=== PATIENT | female | born 1945 | race Caucasian/White ===

== ENCOUNTER 2017-07-27 15:40 | Observation (INO) | payer MEDICARE, BC ==
[~2017-07-27] VITALS: Ht 154.9 cm; Wt 107.0 kg
[2017-07-27 16:47] LABS: HEMATOCRIT 22.8 % (35.0-45.0); MEAN CORPUSCULAR HEMOGLOBIN 14.4 PG (27.0-31.0); MEAN CORPUSCULAR HGB CONC 27.6 % (33.0-36.5); MEAN CORPUSCULAR VOLUME 52.2 FL (78-98); MEAN PLATELET VOLUME 8.2 FL (7.4-10.4); PLATELET COUNT 404 X10'3 (140-440); RED BLOOD COUNT 4.36 X10'6 (4.20-5.60); RED CELL DISTRIBUTION WIDTH 23.1 % (11.5-14.5); WHITE BLOOD COUNT 8.2 X10'3 (4.5-11.0)
[2017-07-27 16:53] LABS: HEMOGLOBIN 6.3 g/dl (12.0-16.0)
[2017-07-27 16:56] LABS: PROTHROMBIN TIME 10.3 SECONDS (9.0-12.0)
[2017-07-27 17:00] LABS: ANISOCYTOSIS 3+; BASOPHILS % (MANUAL) 5 % (0-1); ELLIPTOCYTES 1+; EOSINOPHILS % (MANUAL) 1 % (0-6); HYPOCHROMASIA 2+; LYMPHOCYTES % (MANUAL) 49 % (21-51); MICROCYTOSIS 3+; MONOCYTES % (MANUAL) 6 % (2-12); NEUTROPHILS % (MANUAL) 69 % (42-75); PLATELET ESTIMATE NORMAL; POLYCHROMASIA 1+; TOTAL CELLS COUNTED 100
[2017-07-27 17:01] LABS: ALANINE AMINOTRANSFERASE 21 U/L (12-78); ALBUMIN 3.5 G/DL (3.4-5.0); ALKALINE PHOSPHATASE 63 IU/L (46-116); ANION GAP 9 (8-16); ASPARTATE AMINO TRANSFERASE 14 U/L (10-37); BILIRUBIN,TOTAL 0.5 MG/DL (0.1-1.0); BLOOD UREA NITROGEN 18 MG/DL (7-18); BUN/CREATININE RATIO 18.6 (6.6-38.0); CALCIUM 9.1 MG/DL (8.5-10.1); CHLORIDE 109 MMOL/L (99-107); CREATININE 0.97 MG/DL (0.40-0.90); GLUCOSE 142 MG/DL (70-104); POTASSIUM 3.8 MMOL/L (3.5-5.1); SODIUM 147 MMOL/L (135-145); TOTAL CARBON DIOXIDE 28.8 MMOL/L (24-32); TOTAL PROTEIN 7.1 G/DL (6.4-8.2); eGFR 57 ML/MIN
[2017-07-27] MEDS ORDERED: normal saline 1000ml 1,000 ML IV ONE (17:16)
[2017-07-27] MEDS ORDERED: pantoprazole 40 MG vial IV STA (17:16)
[2017-07-27] MEDS ORDERED: magnesium hydroxide 30ml (MOM) UD suspension PO PRN (18:55)
[2017-07-27] MEDS ORDERED: potassium Cl 20 mEq SR tablet PO PRN ×2 (18:55)
[2017-07-27] MEDS ORDERED: potassium Cl 40MEQ/NS 500ml 500 ML IV PRN ×2 (18:55)
[2017-07-27] MEDS ORDERED: mag hydrox/Alum hydrox/simeth 30ml oral suspension PO PRN (18:55)
[2017-07-27] MEDS ORDERED: sodium ferric gluc complex inj 125 MG in normal saline 100ml IV soln 100 ML IV ONE (18:55)
[2017-07-27] MEDS ORDERED: magnesium 2GM in 50ml NS 50 ML IV PRN (18:55)
[2017-07-27] MEDS ORDERED: magnesium 4gm in 100ml NS 100 ML IV PRN (18:55)
[2017-07-27] MEDS ORDERED: metoclopramide 5 mg/ml inj IV PRN (18:55)
[2017-07-27] MEDS ORDERED: ondansetron/PF 4mg/2ml inj IV PRN (18:55)
[2017-07-27] MEDS: K and/or MAG REPLACEMENT MC SCH (18:55)
[2017-07-27] MEDS ORDERED: acetaminophen 325mg tablet PO PRN ×2 (18:55)
[2017-07-27] MEDS ORDERED: magnesium Cl slow-release 64mg tablet PO PRN (18:55)
[2017-07-27] MEDS ORDERED: HYDROcodone/acetaminophen 10/325mg tab PO PRN (18:55)
[2017-07-27] MEDS ORDERED: HYDROcodone/acetaminophen 5mg/325mg tablet PO PRN (18:55)
[2017-07-27] MEDS ORDERED: METFORMIN HCL 500 MG TABLET (19:00)
[2017-07-27] MEDS ORDERED: OMEP20TA5 PO (19:31)
[2017-07-27] MEDS ORDERED: ASPI-205 PO (19:31)
[2017-07-27 19:42] LABS: PHOSPHORUS 4.2 MG/DL (2.3-4.5)
[2017-07-27] MEDS: furosemide 40mg/4ml inj IV SCH (20:24)
[2017-07-27 20:53] LABS: ABSOLUTE RETICS # 104900 /CUMM (23000-93000); RETICULOCYTE % (AUTO) 2.4 % (0.5-1.5)
[2017-07-27 20:53] LABS: CLARITY,URINE Clear (Clear); COLOR,URINE Yellow (Yellow); GLUCOSE, URINE Negative (Neg); KETONES,URINE Negative (Neg); LEUKOCYTE ESTERASE ,URINE Negative (Neg); NITRITES, URINE Negative (Neg); OCCULT BLOOD,URINE Negative (Neg); PH,URINE 5.5 (4.8-8.0); PROTEIN,URINE Negative (Neg)
[2017-07-27] MEDS ORDERED: temazepam 15mg capsule PO PRN (21:00)
[2017-07-27 21:08] LABS: UA COLLECTION TYPE CLN CATCH MIDSTREAM
[2017-07-27 22:30] VITALS: BP 143/90
[2017-07-27] MEDS ORDERED: diphenhydrAMINE 25mg capsule PO ONE (23:15)
[2017-07-27] MEDS ORDERED: acetaminophen 325mg tablet PO ONE (23:15)
[2017-07-28] VITALS (10 sets, daily range): BP systolic 132–154; BP diastolic 61–89
[2017-07-28 06:25] LABS: HEMATOCRIT 25.3 % (35.0-45.0); HEMOGLOBIN 7.3 g/dl (12.0-16.0); MEAN CORPUSCULAR HEMOGLOBIN 16.9 PG (27.0-31.0); MEAN CORPUSCULAR VOLUME 58.1 FL (78-98); MEAN PLATELET VOLUME 8.5 FL (7.4-10.4); PLATELET COUNT 339 X10'3 (140-440); RED BLOOD COUNT 4.35 X10'6 (4.20-5.60); WHITE BLOOD COUNT 9.7 X10'3 (4.5-11.0)
[2017-07-28 06:42] LABS: ALBUMIN 3.1 G/DL (3.4-5.0); ANION GAP 8 (8-16); BLOOD UREA NITROGEN 13 MG/DL (7-18); BUN/CREATININE RATIO 14.8 (6.6-38.0); CALCIUM 8.4 MG/DL (8.5-10.1); CHLORIDE 109 MMOL/L (99-107); CREATININE 0.88 MG/DL (0.40-0.90); GLUCOSE 91 MG/DL (70-104); MAGNESIUM 1.7 MG/DL (1.5-2.4); POTASSIUM 3.1 MMOL/L (3.5-5.1); SODIUM 144 MMOL/L (135-145); TOTAL CARBON DIOXIDE 27.2 MMOL/L (24-32); eGFR 64 ML/MIN
[2017-07-28] MEDS ORDERED: enoxaparin 40mg/0.4ml syringe SQ SCH (08:00)
[2017-07-28] MEDS: K and/or MAG REPLACEMENT MC SCH (08:00)
[2017-07-28] MEDS: furosemide 40mg/4ml inj IV SCH (08:16)
[2017-07-28 12:15] LABS: HEMATOCRIT 28.1 % (35.0-45.0); HEMOGLOBIN 8.1 g/dl (12.0-16.0); MEAN CORPUSCULAR HEMOGLOBIN 16.8 PG (27.0-31.0); MEAN CORPUSCULAR HGB CONC 28.9 % (33.0-36.5); MEAN PLATELET VOLUME 9.3 FL (7.4-10.4); PLATELET COUNT 402 X10'3 (140-440); RED BLOOD COUNT 4.85 X10'6 (4.20-5.60); RED CELL DISTRIBUTION WIDTH 32.6 % (11.5-14.5)
[2017-07-28] MEDS ORDERED: METF500T4 PO (13:12)
[2017-08-01 11:27] LABS: OCCULT BLOOD STOOL NEGATIVE (Neg)
== END 2017-07-28 16:10 | disposition home or self-care (01) ==
LOC: ER 15:40 → ED HOLD 18:55 → SUR 3N 22:05
PROVIDERS: ADMIT Family Medicine; ATTEND Family Medicine
DX: D50.9 Iron deficiency anemia, unspecified (principal); E11.9 Type 2 diabetes mellitus without complications; E78.5 Hyperlipidemia, unspecified; K21.9 Gastro-esophageal reflux disease without esophagitis; I50.9 Heart failure, unspecified; Z90.721 Acquired absence of ovaries, unilateral; Z90.49 Acquired absence of other specified parts of digestive tract
CPT/HCPCS: 36415; 36430; 71010; 80048; 80053; 81003; 82272; 82607; 82728; 82746; 82948; 83735; 83880; 84100; 84484; 85025; 85027; 85045; 85384; 85610; 86870; 86880; 86885; 86886; 86900; 86901; 86902; 86905; 86922; 87070; 93005; 93306; 96361; 96365; 96372; 96375; 96376; 99285; C9113; G0378; J1650; J1940; J2916; J7030; P9016; Q0163; 86920